=== PATIENT | male | born 1975 | race Caucasian/White ===

== ENCOUNTER 2017-10-05 02:43 | Emergency (ER) | payer BC ==
[~2017-10-05] VITALS: Ht 170.2 cm; Wt 98.0 kg
[2017-10-05 02:49] VITALS: BP 145/104; Ht 170.2 cm; Wt 98.0 kg
== END 2017-10-05 05:53 | disposition left against medical advice (07) ==
LOC: ED 02:43
DX: Z53.21 Procedure and treatment not carried out due to patient leaving prior to being seen by health care provider (principal)